=== PATIENT | female | born 1990 | race Hispanic/Latino ===

== ENCOUNTER 2018-03-31 07:10 | Emergency (ER) | payer SELFPAY ==
[2018-03-31] MEDS ORDERED: diphenhydrAMINE 50 MG/ML VIAL ONE (07:38)
[2018-03-31] MEDS ORDERED: Sodium Chloride 0.9% 1,000 ML ONE (07:38)
[2018-03-31] MEDS ORDERED: Metoclopramide HCl 10 MG/2 ML VIAL ONE (07:38)
[2018-03-31] MEDS ORDERED: Sodium Chloride 0.9% 0 ML ONE (07:38)
== END 2018-03-31 08:51 | disposition home or self-care (01) ==
LOC: NAV ERS 07:10
DX: G43.909 Migraine, unspecified, not intractable, without status migrainosus (principal); F41.9 Anxiety disorder, unspecified; D50.0 Iron deficiency anemia secondary to blood loss (chronic); F31.9 Bipolar disorder, unspecified
CPT/HCPCS: 96365; 96375; J1200; J2765; J7050